=== PATIENT | female | born 1965 | race Caucasian/White ===

== ENCOUNTER 2017-01-17 17:10 | Emergency (ER) | payer SELFPAY ==
[~2017-01-17] VITALS: Ht 160 cm; Wt 70.8 kg
[2017-01-17 18:06] VITALS: BP 136/78
--- NOTE | 2017-01-17 19:22 | NUR ---
PATIENT AMBULATED TO ER OF1.
--- NOTE | 2017-01-17 19:29 | NUR ---
PATIENT BEING EVALUATED BY DR. KYLE.
[2017-01-17 20:30] VITALS: BP 136/78
--- NOTE | 2017-01-17 20:30 | NUR ---
Patient discharged with v/s stable. Written and verbal after care instructions given and explained. Patient alert, oriented and verbalized understanding of instructions. Ambulatory with steady gait. All questions addressed prior to discharge. ID band removed. Patient advised to follow up with PMD. Rx of IBUPROFEN, NORCO, FLEXERIL given. Patient educated on indication of medication including possible reaction and side effects. Opportunity to ask questions provided and answered.
== END 2017-01-17 20:30 | disposition home or self-care (01) ==
LOC: MED 17:10
DX: M54.42 Lumbago with sciatica, left side (principal)